=== PATIENT | female | born 1980 | race Caucasian/White ===

== ENCOUNTER 2017-06-27 19:35 | Emergency (ER) | payer OTHER ==
[2017-06-27 19:49] VITALS: TEMP 97.7; BMI 26.7
--- NOTE | 2017-06-27 20:34 | PDOC ---
History of Present Illness - General History Source: Patient Exam Limitations: No Limitations - History of Present Illness Initial Comments: 06/27/17 21:21 The patient is a 36 year old female, with no significant past medical history, who presents to the emergency room complaining of 3 weeks of an intermittent, sharp, stabbing headache at her temples bilaterally. The headache wraps around her head in a headband like manner radiating behind the ear and down her jaw. She reports that the headache became significantly worse 1 week ago and is now preventing her from sleeping at night. She notes that her eyes feel tired but denies blurred vision or any changes in vision. She has been taking 2 Tylenol 3 times daily with mild relief. She notes a rash behind her ears bilaterally and has been seeing a imaging tech. Denies lightheadedness, dizziness. Denies any recent illness. Denies fever, chills, nausea, vomiting. Allergies: none reported <Amy Enrique - Last Filed: 06/28/17 00:35> <Magui Gonzalez - Last Filed: 06/28/17 01:01> - General Chief Complaint: Headache Stated Complaint: HEADACHE PAIN Time Seen by Provider: 06/27/17 20:34 Past History <Amy Enrique - Last Filed: 06/28/17 00:35> - Past Medical History Anemia: No Asthma: No Cancer: No Cardiac Disorders: No Diabetes: No HTN: No Seizures: No Thyroid Disease: No - Reproductive History (#): 4 Para: 2 Spontaneous : 1 - Immunization History Immunization Up to Date: Yes - Psycho/Social/Smoking Cessation Hx Anxiety: No Suicidal Ideation: No Smoking Status: No Smoking History: Never smoked Have you smoked in the past 12 months: No Number of Cigarettes Smoked Daily: 0 Hx Alcohol Use: No Drug/Substance Use Hx: No Hx Substance Use Treatment: No <Magui Gonzalez - Last Filed: 06/28/17 01:01> - Past Medical History Allergies/Adverse Reactions: Allergies Allergy/AdvReac Type Severity Reaction Status Date / Time No Known Allergies Allergy Verified 06/27/17 19:49 Review of Systems - Review of Systems Able to Perform ROS?: Yes Comments:: 06/27/17 21:21 GENERAL/CONSTITUTIONAL: No fever or chills. No weakness. HEAD, EYES, EARS, NOSE AND THROAT: No change in vision. No ear pain or discharge. No sore throat. CARDIOVASCULAR: No chest pain or shortness of breath. RESPIRATORY: No cough, wheezing, or hemoptysis. GASTROINTESTINAL: No nausea, vomiting, diarrhea or constipation. GENITOURINARY: No dysuria, frequency, or change in urination. MUSCULOSKELETAL: No joint or muscle swelling or pain. No neck or back pain. SKIN: No rash NEUROLOGIC: +headache. No vertigo, loss of consciousness, or change in strength/ sensation. ENDOCRINE: No increased thirst. No abnormal weight change. HEMATOLOGIC/LYMPHATIC: No anemia, easy bleeding, or history of blood clots. ALLERGIC/IMMUNOLOGIC: No hives or skin allergy. <Amy Enrique - Last Filed: 06/28/17 00:35> *Physical Exam - Vital Signs Last Vital Signs Temp Pulse Resp BP Pulse Ox 97.7 F 54 L 18 144/87 99 06/27/17 19:47 06/27/17 19:47 06/27/17 19:47 06/27/17 19:47 06/27/17 19:47 - Physical Exam Comments: 06/27/17 21:22 GENERAL: Awake, alert, and fully oriented, in no acute distress HEAD: No signs of trauma EYES: PERRLA, EOMI, sclera anicteric, conjunctiva clear. No nystagmus ENT: Auricles normal inspection, hearing grossly normal, nares patent, oropharynx clear without exudates. Moist mucosa NECK: Normal ROM, supple, no lymphadenopathy, JVD, or masses LUNGS: Breath sounds equal, clear to auscultation bilaterally. No wheezes, and no crackles HEART: Regular rate and rhythm, normal S1 and S2, no murmurs, rubs or gallops ABDOMEN: Soft, nontender, normoactive bowel sounds. No guarding, no rebound. No masses EXTREMITIES: Normal range of motion, no edema. No clubbing or cyanosis. No cords, erythema, or tenderness NEUROLOGICAL: Cranial nerves II through XII grossly intact. Normal speech, normal gait SKIN: Eczematous dry rash behind the ears bilaterally with the right worse than the left.Warm, Dry, normal turgor, no lesions noted. <Amy Enrique - Last Filed: 06/28/17 00:35> - Vital Signs Last Vital Signs Temp Pulse Resp BP Pulse Ox 97.7 F 54 L 18 144/87 99 06/27/17 19:47 06/27/17 19:47 06/27/17 19:47 06/27/17 19:47 06/27/17 19:47 <Magui Gonzalez - Last Filed: 06/28/17 01:01> ED Treatment Course - LABORATORY CBC & Chemistry Diagram: 06/27/17 21:20 06/27/17 21:20 - RADIOLOGY Radiograph Interpretation: 06/28/17 00:36 EXAM: CT BRAIN WITHOUT CONTRAST AND CTA HEAD HISTORY: Rule out Takayasu's arthritis COMPARISON: None. FINDINGS:CT brain: The ventricular system is midline and nondilated. The sulcal pattern is normal for the patient's age. There is no bleed, mass, extra-axial fluid collection or mass effect. No skull fracture or skull lesion is identified. The visualized paranasal sinuses and mastoid air cells are clear. CT angiogram brain: The right anterior, middle and posterior cerebral arteries appear normal without clot, occlusion, high-grade stenosis, vessel irregularity or discrete aneurysm formation. Distal vertebral basilar system is unremarkable. Distal right and left internal carotid arteries are normal. No discrete areas of abnormally increased or decreased enhancement. IMPRESSION: Normal CT brain Normal CT angiogram brain. THIS DOCUMENT HAS BEEN ELECTRONICALLY SIGNED Wilton Charles MD 06/28/2017 00:15 RONNIE Mejia <Amy Enrique - Last Filed: 06/28/17 00:35> - LABORATORY CBC & Chemistry Diagram: 06/27/17 21:20 06/27/17 21:20 <Magui Gonzalez - Last Filed: 06/28/17 01:01> Medical Decision Making - Medical Decision Making 06/28/17 00:58 Pt has a normal CTA. I sent a ddimer accidentally instead of Sed rate. Later realized my mistake and sent a sed rate. Both are elevated. Pt has normal Labs otherwise. She had an elevated sed rate in the past. Unclear if she has any other rheumatologic disease. She is at decreased risk of temporal arteritis, as she is only 36 years old. Pt will be asked to follow with her PMD and to follow with a photographer model. <Magui Gonzalez - Last Filed: 06/28/17 01:01> *DC/Admit/Observation/Transfer - Attestations Scribe Attestion: 06/27/17 21:22 Documentation prepared by ABDI Meléndez, acting as medical insurance claims specialist for Magui Gonzalez MD. <Amy Enrique - Last Filed: 06/28/17 00:35> - Discharge Dispostion Admit: No <Magui Gonzalez - Last Filed: 06/28/17 01:01> Diagnosis at time of Disposition: Headache - Discharge Dispostion Disposition: HOME Condition at time of disposition: Stable - Patient Instructions Printed Discharge Instructions: DI for Headache
[2017-06-27 21:30] LABS: BASOPHIL 0.7 % (0-2.0); EOSINOPHIL 1.4 % (0-4.5); MCH 27.8 pg (25.7-33.7); MCHC 33.5 g/dl (32.0-36.0); MEAN CELL VOLUME 82.9 fl (80-96); NEUTROPHILS 42.2 % (42.8-82.8); PLATELET COUNT 240 K/MM3 (134-434); RDW 16.2 % (11.6-15.6); WHITE BLOOD COUNT 4.5 K/mm3 (4.0-10.0)
[2017-06-27 22:11] LABS: ALBUMIN 3.7 g/dl (3.4-5.0); ALK PHOS 124 U/L (45-117); ANION GAP 7 (8-16); BILIRUBIN,TOTAL 0.3 mg/dL (0.2-1.0); CALCIUM 8.8 mg/dL (8.5-10.1); CO2 27 mmol/L (21-32); CREATININE 0.6 mg/dL (0.55-1.02); GLUCOSE,RANDOM 82 mg/dL (74-106); SGOT/AST 37 U/L (15-37); SGPT/ALT 31 U/L (12-78); TOT PROT 8.1 g/dl (6.4-8.2)
[2017-06-28] MEDS ORDERED: IBUPROFEN 600 MG TABLET (FP) PO ONE ×2 (01:03→01:14)
[2017-06-28 01:18] VITALS: BP 141/72; PULSE 50
== END 2017-06-28 01:18 | disposition home or self-care (01) ==
LOC: JER 19:35
DX: R51 Headache (principal)
CPT/HCPCS: 36415; 70496-TC; 80053; 84703; 85025; 85379; 85651; 99282-25

== ENCOUNTER 2018-10-17 03:27 | Emergency (ER) | payer OTHER ==
[2018-10-17 03:52] VITALS: BP 139/82; PULSE 61; TEMP 98.6; BMI 25.9
--- NOTE | 2018-10-17 03:52 | PDOC ---
History of Present Illness - General Chief Complaint: Pain, Acute Stated Complaint: R ARM PAIN/THROAT PAIN Time Seen by Provider: 10/17/18 03:51 Past History - Past Medical History Allergies/Adverse Reactions: Allergies Allergy/AdvReac Type Severity Reaction Status Date / Time No Known Allergies Allergy Verified 10/17/18 03:50 Home Medications: Ambulatory Orders NK [No Known Home Medication] 10/17/18 Anemia: No Asthma: No Cancer: No Cardiac Disorders: No Diabetes: No HTN: No Seizures: No Thyroid Disease: No - Reproductive History (#): 4 Para: 2 Spontaneous : 1 - Immunization History Immunization Up to Date: Yes - Suicide/Smoking/Psychosocial Hx Smoking Status: No Smoking History: Never smoked Have you smoked in the past 12 months: No Number of Cigarettes Smoked Daily: 0 Hx Alcohol Use: No Drug/Substance Use Hx: No Hx Substance Use Treatment: No
--- NOTE | 2018-10-17 04:23 | PDOC ---
Attending Attestation - Resident Resident Name: Lauri Dominguez - ED Attending Attestation I have performed the following: I have examined & evaluated the patient, The case was reviewed & discussed with the resident, I agree w/resident's findings & plan - HPI HPI: 10/17/18 06:09 Pt comes with throat pain, facial pain x a few days. Her son had an ear infection and cough and he was treated with abx. and fever since yesterday. - Physicial Exam PE: 10/17/18 06:10 Agree with resident exam; pt comes with facial pain; likely sinusitis. - Medical Decision Making 10/17/18 06:12 Home with 500 zithromax daily x 3 days. One zith here and tylenol. Pt is feeling better; flu swab sent; result pending. I will check it later. 10/17/18 19:28 Flu negative and UA negative.
[2018-10-17 05:44] LABS: URINE APPEARANCE CLEAR; URINE BILIRUBIN NEGATIVE (<2.0 mg/dL); URINE COLOR YELLOW; URINE GLUCOSE (UA) NEGATIVE (NEGATIVE); URINE KETONE NEGATIVE (NEGATIVE); URINE LEUK ESTERASE NEGATIVE (NEGATIVE); URINE NITRITE NEGATIVE (NEGATIVE); URINE PROTEIN NEGATIVE (NEGATIVE); URINE UROBILINOGEN NEGATIVE mg/dL (0.2-1.0)
[2018-10-17 05:45] LABS: HCG,QUALITATIVE URINE Negative
--- NOTE | 2018-10-17 05:45 | PDOC ---
History of Present Illness - General Chief Complaint: Pain, Acute Stated Complaint: R ARM PAIN/THROAT PAIN Time Seen by Provider: 10/17/18 03:51 History Source: Patient, [employer]stream Biomanufacturing Technician Used Exam Limitations: Language Barrier - History of Present Illness Initial Comments: 10/17/18 05:37 Pt. is a 38 y.o. F with no PMHx. presents with sore throat, right arm pain and numbness on the right side. Pt. states that she has been having progressively worsening sore throat and arm pain for 2 weeks. Pt. states that she has a cough , muscle pain, joint pain all over most prominent in right shoulder. Pt. states that she has right-sided numbness from the right shoulder to the right knee with muscle weakness 2/2 pain. Pt. states that she did not have the Flu vaccine this year. She endorses green sputum production with cough and bilateral ear pain. Pt. reports a fever to 100.6 at home.Pt. states she took Motrin but that it only helped the fever not the pain. Pt. endorses normal menstruation. Pt. denies any changes in her bowel or urinary habits. Pt. denies any vomiting, changes in vision dysuria or polyuria. Past History - Travel Traveled outside of the country in the last 30 days: No Close contact w/someone who was outside of country & ill: No - Past Medical History Allergies/Adverse Reactions: Allergies Allergy/AdvReac Type Severity Reaction Status Date / Time No Known Allergies Allergy Verified 10/17/18 03:50 Home Medications: Ambulatory Orders Acetaminophen [Tylenol] 650 mg PO PRN 10/17/18 Azithromycin [Zithromax Tri-Rome (3 DAYS) -] 500 mg PO DAILY #3 tablet 10/17/18 Anemia: No Asthma: No Cancer: No Cardiac Disorders: No COPD: Yes Diabetes: No HTN: No Seizures: No Thyroid Disease: No - Reproductive History (#): 4 Para: 2 Spontaneous : 1 - Immunization History Immunization Up to Date: Yes - Suicide/Smoking/Psychosocial Hx Smoking Status: No Smoking History: Never smoked Have you smoked in the past 12 months: No Number of Cigarettes Smoked Daily: 0 Information on smoking cessation initiated: No Hx Alcohol Use: No Drug/Substance Use Hx: No Hx Substance Use Treatment: No Review of Systems - Review of Systems Able to Perform ROS?: Yes Is the patient limited Macedonian proficient: Yes Constitutional: Yes: Fever, Malaise, Weakness HEENTM: Yes: Ear Pain, Throat Pain Respiratory: Yes: Cough Cardiac (ROS): No: Chest Pain, Irregular Heart Rate ABD/GI: Yes: Poor Fluid Intake. No: Constipated, Diarrhea, Difficulty Swallowing : No: Dysuria, Discharge, Frequency, Flank Pain, Hematuria, Incontinence Musculoskeletal: Yes: Back Pain, Joint Pain, Muscle Pain, Muscle Weakness, Neck Pain Integumentary: Yes: Erythema. No: Change in Color Neurological: Yes: Numbness, Weakness Hematologic/Lymphatic: Yes: Lymph Node Abnormalities (left submandibular LAD) *Physical Exam - Vital Signs Last Vital Signs Temp Pulse Resp BP Pulse Ox 98.6 F 61 18 139/82 99 10/17/18 03:50 10/17/18 03:50 10/17/18 03:50 10/17/18 03:50 10/17/18 03:50 - Physical Exam General Appearance: Yes: Nourished, Appropriately Dressed, Apparent Distress, Mild Distress HEENT: positive: Normal ENT Inspection, Normal Voice, Symmetrical, Pharynx Normal, Hearing Grossly Normal. negative: Tonsillar Exudate, Tonsillar Erythema , Hearing Decreased, TM Bulging, TM Dull, TM Erythema Neck: positive: Tender, Trachea midline, Normal Thyroid, Supple, Lymphadenopathy (R) (submandibular), Tender lateral Respiratory/Chest: positive: Lungs Clear, Normal Breath Sounds. negative: Accessory Muscle Use, Labored Respiration, Crackles, Wheezing Cardiovascular: positive: Regular Rhythm, Regular Rate, S1, S2. negative: Edema Vascular Pulses: Dorsalis-Pedis (R): 2+, Doralis-Pedis (L): 2+ Gastrointestinal/Abdominal: positive: Normal Bowel Sounds Lymphatic: positive: Adenopathy (submandibular ) Musculoskeletal: positive: Decreased Range of Motion (right shoulder ). negative: CVA Tenderness Extremity: positive: Tender. negative: Pedal Edema, Swelling, Calf Tenderness Integumentary: positive: Normal Color, Dry, Warm. negative: Swelling, Ecchymosis Neurologic: positive: Fully Oriented, Alert, Normal Response, Motor Strength 5/5 , Numbness Moderate Sedation - Procedure Monitoring Vital Signs: Procedure Monitoring Vital Signs Temperature 98.6 F 10/17/18 03:50 Pulse Rate 61 10/17/18 03:50 Respiratory Rate 18 10/17/18 03:50 Blood Pressure 139/82 10/17/18 03:50 O2 Sat by Pulse Oximetry (%) 99 10/17/18 03:50 *DC/Admit/Observation/Transfer Diagnosis at time of Disposition: Pain, Sore throat (viral) - Discharge Dispostion Disposition: HOME Condition at time of disposition: Stable - Prescriptions Prescriptions: Azithromycin [Zithromax Tri-Rome (3 DAYS) -] 500 mg PO DAILY #3 tablet - Referrals - Patient Instructions Printed Discharge Instructions: How to Avoid a Cold or Flu Additional Instructions: You came in for sore throat, right shoulder pain and right-sided numbness. We evaluated you for the flu. Please follow up with your Primary Care Physician within 1 week. Please go to the ER if you are experiencing worsening right arm pain, worsening numbness, chest pain, worsening shortness of breath or any concerning symptoms. - Post Discharge Activity
[2018-10-17] MEDS ORDERED: ACETAMINOPHEN 500 MG TABLET (FP) PO ONE (05:53)
[2018-10-17] MEDS ORDERED: AZITHROMYCIN 500 MG TABLET PO ONE (06:08)
[2018-10-17] MEDS ORDERED: AZITHROMYCIN 250 MG TABLET ONE (06:10)
[2018-10-17] MEDS ORDERED: ACETAMINOPHEN 325 MG TABLET (FP) ONE (06:10)
== END 2018-10-17 06:14 | disposition home or self-care (01) ==
LOC: JER 03:27
DX: J02.9 Acute pharyngitis, unspecified (principal); B97.89 Other viral agents as the cause of diseases classified elsewhere; R52 Pain, unspecified
CPT/HCPCS: 81003; 84703; 87804; 99282-25